=== PATIENT | female | born 1950 | race Caucasian/White ===

== ENCOUNTER 2024-07-10 16:14 | Emergency (ER) | payer MEDICARE, SELFPAY ==
[2024-07-10 16:18] VITALS: BP 155/91
[2024-07-10 16:49] LABS: % Basophils 0.7 % (0-2); % Eosinophils 1.1 % (0-6); % Immature Granulocytes 0.4 % (0-0.5); % Lymphocytes 29.5 % (20.5-51.1); % Monocytes 6.1 % (1.7-9.3); % Neutrophils 62.2 % (42.2-75.2); Absolute Basophils 0.1 10^3/uL (0-0.2); Absolute Eosinophils 0.1 10^3/uL (0-0.7); Absolute Lymphocytes 2.1 10^3/uL (1.2-3.4); Absolute Monocytes 0.4 10^3/uL (0.1-0.6); Absolute Neutrophils 4.4 10^3/uL (1.4-6.5); Hematocrit 41.6 % (37.0-47.0); Mean Corp Hgb Conc. 33.7 g/dL (33.0-37.0); Mean Corpuscular Volume 89.3 fL (81.0-99.0); Mean Platelet Volume 9.4 fL (7.4-10.4); Nucleated Red Blood Cells % 0 %; Platelet Count 301 10^3/uL (130-400); Red Blood Cell Count 4.66 10^6/uL (4.20-5.40); Red Cell Dist. Width 12.9 % (11.5-14.5); White Blood Cell Count 7.1 10^3/uL (4.8-10.8)
[2024-07-10 16:58] LABS: ALT (SGPT) 29 U/L (0-35); AST (SGOT) 30 U/L (14-36); Albumin 4.7 g/dl (3.5-5.0); Alkaline Phosphatase 127 U/L (38-126); Blood Urea Nitrogen 23 mg/dl (7-17); Calcium 10.3 mg/dl (8.4-10.2); Carbon Dioxide 25 mmol/L (22-30); Chloride 104 mmol/L (98-107); Glucose 122 mg/dl (70-99); Lipase 136 U/L (23-300); Potassium 5.4 mmol/L (3.5-5.1); Sodium 141 mmol/L (135-145); Total Bilirubin 0.4 mg/dl (0.2-1.3); Total Protein 7.3 g/dl (6.3-8.2); eGFR > 60.00
--- NOTE | 2024-07-10 17:19 | ED.GENMED ---
History of Present Illness
<Jamil Guerin PA-C - Last Filed: 07/19/24 07:04>
General
Chief Complaint: Abdominal Pain
Source: patient and family
Time Seen by Provider: 07/10/24 17:05
History of Present Illness
History of Present Illness:
73-year-old female with past medical history of previous brain tumor status post brain resection, CVA, hypertension presenting to the ER with her sister for evaluation of 2 weeks of GI related issues that have been waxing and waning, notes
intermittent diarrhea but states has had normal stool at times as well, intermittently with yellow pasty stools and sometimes feeling as if she has to go but unable to do so. Patient also notes some urinary frequency but states the urinary issues
have been ongoing for many years, maybe slightly worse over the last few months. Patient attempted some Pepto-Bismol, probiotics but with no relief. Denies any fevers, chills or rigors. No other concerns presently. Patient lives in [place]
and is currently visiting her sister after the patient's sister's .
Past History
<Jamil Guerin PA-C - Last Filed: 07/19/24 07:04>
Past History
ED Past Medical History: HTN and Other (brain tumor)
ED Past Surgical History: Brain
Social History
Tobacco: Non-smoker
Alcohol: None
Drug: None
Personal:
Living: with family
Review of Systems
<Jamil Guerin PA-C - Last Filed: 07/19/24 07:04>
Review of Systems
All Other Systems: ROS reviewed and negative except as documented in HPI and ROS
Phy Exam
<Jamil Guerin PA-C - Last Filed: 07/19/24 07:04>
Physical Exam
Physical Exam:
GENERAL: Alert , in no apparent distress
EYE: clear conjunctiva b/l
HEAD: NCAT
ENT: mmm.
CARDIAC: Regular rate and rhythm .
LUNGS: Clear breath sounds bilaterally, no acute respiratory distress, no wheezes/rales/rhonchi
ABDOMEN: Soft, mild ttp LLQ, no r/g, no cvat
NEUROLOGICAL: Alert and oriented
SKIN: Warm and dry, skin intact.
MUSCULOSKELETAL: No edema, well perfused.
PSYCH: Normal and appropriate interaction.
Scores
<Jamil Guerin PA-C - Last Filed: 07/19/24 07:04>
Heart Failure Risk
Heart Failure Risk Score: Not Applicable
Heart Score for Chest Pain Patients
STEMI patient?: Not applicable
Withdrawal Assessment of Alcohol
Withdrawal Assessment Completed?: Not applicable
Course
<Jamil Guerin PA-C - Last Filed: 07/19/24 07:04>
Orders/Labs/Results
Orders:
Orders
07/10/24 16:35
CBC/With Diff [Complete Blood Count/With Diff] Urgent
CMP [Comprehensive Metabolic Panel] Urgent
Lipase Urgent
07/10/24 17:19
CT Abd/pelvis W Iv Cont Urgent
Comment:
Reason For Exam: generalized abd pain, slightly worse in LLQ
07/10/24 17:28
Urinalysis Reflex To Culture Urgent
Date Specimen was Collected: 07/10/24
Time Specimen was Collected: 17:25
Urine Microscopic Reflex Cult Urgent
Urine Culture Urgent
LINETTE Source: U
Specimen Description:
Date Specimen was Collected: 07/10/24
Time Specimen was Collected: 17:25
Abnormal Lab Results
07/10/24 07/10/24
16:35 17:28
Potassium 5.4 H mmol/L
(3.5-5.1)
BUN 23 H mg/dl
(7-17)
Glucose 122 H mg/dl
(70-99)
Calcium 10.3 H mg/dl
(8.4-10.2)
Alkaline Phosphatase 127 H U/L
(38-126)
Leukocyte Esterase Rfl 1+ A
(Negative)
Urine WBC (Reflex) 11-15 A /HPF
(0-5)
Urine Bacteria (Reflex) Few A
(Negative)
07/10/24 16:35
07/10/24 16:35
Vital Signs
Initial and Last Documented VS:
Initial Vital Signs
Temp Pulse Resp BP Pulse Ox
98.7 F 92 18 155/91 99
07/10/24 16:18 07/10/24 16:18 07/10/24 16:18 07/10/24 16:18 07/10/24 16:18
Last Documented Vital Signs
Temp Pulse Resp BP Pulse Ox
98.7 F 92 18 136/78 98
07/10/24 16:18 07/10/24 16:18 07/10/24 16:18 07/10/24 17:33 07/10/24 17:45
[place];Timothy Tyler, DO - Last Filed: 07/10/24 18:52>
Orders/Labs/Results
Orders:
Orders
07/10/24 16:35
CBC/With Diff [Complete Blood Count/With Diff] Urgent
CMP [Comprehensive Metabolic Panel] Urgent
Lipase Urgent
07/10/24 17:19
CT Abd/pelvis W Iv Cont Urgent
Comment:
Reason For Exam: generalized abd pain, slightly worse in LLQ
07/10/24 17:28
Urinalysis Reflex To Culture Urgent
Date Specimen was Collected: 07/10/24
Time Specimen was Collected: 17:25
Urine Microscopic Reflex Cult Urgent
Urine Culture Urgent
LINETTE Source: U
Specimen Description:
Date Specimen was Collected: 07/10/24
Time Specimen was Collected: 17:25
Abnormal Lab Results
07/10/24 07/10/24
16:35 17:28
Potassium 5.4 H mmol/L
(3.5-5.1)
BUN 23 H mg/dl
(7-17)
Glucose 122 H mg/dl
(70-99)
Calcium 10.3 H mg/dl
(8.4-10.2)
Alkaline Phosphatase 127 H U/L
(38-126)
Leukocyte Esterase Rfl 1+ A
(Negative)
Urine WBC (Reflex) 11-15 A /HPF
(0-5)
Urine Bacteria (Reflex) Few A
(Negative)
07/10/24 16:35
07/10/24 16:35
Vital Signs
Initial and Last Documented VS:
Initial Vital Signs
Temp Pulse Resp BP Pulse Ox
98.7 F 92 18 155/91 99
07/10/24 16:18 07/10/24 16:18 07/10/24 16:18 07/10/24 16:18 07/10/24 16:18
Last Documented Vital Signs
Temp Pulse Resp BP Pulse Ox
98.7 F 92 18 136/78 98
07/10/24 16:18 07/10/24 16:18 07/10/24 16:18 07/10/24 17:33 07/10/24 17:45
<Jamil Guerin PA-C - Last Filed: 07/19/24 07:04>
MDM/Problems Addressed
Differential Diagnosis Includes:
diverticulitis, colitis, gastroenteritis, IBS
MDM/Problems Addressed:
73 year old female with 2 weeks waxing and waning GI upset. currently pain controlled. mild LLQ ttp on exam. Labs initiated in triage are reassuring. Will obtain CT for further evaluation. Urinalysis added
<Jamil Gurein PA-C - Last Filed: 07/19/24 07:04>
*Pulse Oximetry
Patient hypoxic: no
*Critical Care Note
Total Time (30-74mins, 75-104mins- exclusive of procedures): Not Applicable
<Timothy Tyler DO - Last Filed: 07/10/24 18:52>
*Radiology
Radiology exam reviewed: radiology read reviewed (CT abdomen pelvis no acute findings, fatty alteration of pancreas, bilateral benign-appearing ovarian cysts, hepatic cyst.)
ED Attending Note
<Jamil Guerin PA-C - Last Filed: 07/19/24 07:04>
-
Portions of this chart may have been created with voice recognition software.� Occasional wrong word or��sound alike� substitutions may have occurred due to the inherent limitations of voice recognition software.
<Timothy Tyler DO - Last Filed: 07/10/24 18:52>
ED Attending Note
Patient seen and examined by attending physician: Yes
ED Attending Note:
I have reviewed and agree with history and plan by Rayo Guerin. My exam revealed 73-year-old female in no acute distress. CT abdomen pelvis no acute findings, fatty alteration of pancreas, bilateral benign-appearing ovarian cysts, hepatic cyst.
Patient given instructions on these results.
Discharge Plan
Departure
Patient Disposition: Home (Routine Discharge)
Date of Disposition: 07/10/24
Time of Disposition: 18:47
Patient with high blood pressure during this ER visit?: Yes
Condition: Good
Discharge Problem:
Abdominal pain in female patient, Diarrhea
Instructions: Diarrhea in teens and adults, Abdominal Pain, BLOOD PRESSURE
Referrals:
UNKNOWN - PT DOES,NOT KNOW [Family Provider] -
Activity Restrictions/Additional Instructions:
Follow-up with primary care in 1 week. Return for any concerns.
Interventions
Interventions:
*Risk Screen - Suicide Last Done: 07/10/24 19:19
*General Assessment Last Done: 07/10/24 19:19
*Neglect/Abuse Screening Last Done: 07/10/24 19:19
*Nursing Disposition Last Done: 07/10/24 19:19
LC-Epsfwg-Izxgwyajrz Assessment Last Done: 07/10/24 17:45
Discharge Date and Time
Discharge Date/Time: 07/10/24 19:23
Print Language: THAI
[2024-07-10 17:33] VITALS: BP 136/78
[2024-07-10 17:36] LABS: Urine Albumin Negative (Neg - Trace); Urine Bilirubin Negative (Negative); Urine Character Slightly Cloudy (Clear); Urine Color Yellow; Urine Glucose Negative (Negative); Urine Ketone Negative (Negative); Urine Leukocyte 1+ (Negative); Urine Nitrite Negative (Negative); Urine Occult Blood Negative (Negative); Urine Specific Gravity 1.025 (<1.030); Urine Urobilinogen Negative (Neg - 1+)
[2024-07-10 18:00] LABS: Urine Squamous Cell >30 /LPF (Few)
[2024-07-10 18:01] LABS: Urine Bacteria Few (Negative)
== END 2024-07-10 19:23 | disposition home or self-care (01) ==
LOC: EMR 16:14
PROVIDERS: Physician Assistant Medical; EMERGENCY PHYSICIAN Emergency Medicine
DX: R19.7 Diarrhea, unspecified (principal); R10.32 Left lower quadrant pain; I10 Essential (primary) hypertension
CPT/HCPCS: 99285; 74177; 80053; 81003; 81015; 83690; 85025; 87086; Q9967